=== PATIENT | male | born 1995 | race Asian ===

== ENCOUNTER 2020-09-02 13:21 | Emergency (ER) | payer OTHER, BC ==
[2020-09-02] MEDS ORDERED: Triple Antibiotic Oint 1 GM Packet ONE (15:00)
== END 2020-09-02 15:05 | disposition home or self-care (01) ==
LOC: CSHERS 13:21
DX: S00.81XA Abrasion of other part of head, initial encounter (principal); S40.812A Abrasion of left upper arm, initial encounter; S40.811A Abrasion of right upper arm, initial encounter; V19.9XXA Pedal cyclist (driver) (passenger) injured in unspecified traffic accident, initial encounter
CPT/HCPCS: 70450